=== PATIENT | male | born 1940 | race Caucasian/White ===

== ENCOUNTER → 2024-06-21 15:21 | Outpatient (REF) | payer MEDICARE, BC, SELFPAY ==
[2024-06-21 16:25] LABS: Blood Urea Nitrogen 12 mg/dl (9-20); Calcium 9.2 mg/dl (8.4-10.2); Carbon Dioxide 31 mmol/L (22-30); Chloride 101 mmol/L (98-107); Glucose 135 mg/dl (70-99); Potassium 4.7 mmol/L (3.5-5.1); Sodium 142 mmol/L (135-145); eGFR > 60.00
== END ==
LOC: REG 15:21
PROVIDERS: ATTENDING PHYSICIAN Surgery Vascular Surgery; FAMILY PHYSICIAN Family Medicine
DX: I71.40 Abdominal aortic aneurysm, without rupture, unspecified (principal)
CPT/HCPCS: 36415; 80048

== ENCOUNTER → 2024-06-29 11:27 | Outpatient (REF) | payer MEDICARE, BC, SELFPAY | LOC: RAD 11:27 | PROVIDERS: ATTENDING PHYSICIAN Surgery Vascular Surgery; FAMILY PHYSICIAN Family Medicine | DX: I71.40 Abdominal aortic aneurysm, without rupture, unspecified (principal) | CPT/HCPCS: 75635; Q9967 ==

== ENCOUNTER → 2024-11-19 11:45 | Outpatient (REF) | payer MEDICARE, BC, SELFPAY | LOC: RAD 11:45 | PROVIDERS: ATTENDING PHYSICIAN Surgery Vascular Surgery; FAMILY PHYSICIAN Internal Medicine; OTHER PHYSICIAN Psychiatry & Neurology Neurology | DX: I77.9 Disorder of arteries and arterioles, unspecified (principal); Z51.89 Encounter for other specified aftercare | CPT/HCPCS: 73590 ==